=== PATIENT | male | born 1955 | race Caucasian/White ===

== ENCOUNTER 2023-04-11 15:06 | Outpatient (CLI) | payer MEDICARE, BC | END 2023-04-11 15:07 | disposition home or self-care (01) | LOC: CSHRAD 15:06 | PROVIDERS: ATTEND Family Medicine Sports Medicine | DX: M54.2 Cervicalgia (principal); M47.812 Spondylosis without myelopathy or radiculopathy, cervical region | CPT/HCPCS: 72050 ==